=== PATIENT | female | born 1980 | race Caucasian/White ===

== ENCOUNTER 2017-03-23 19:52 | Emergency (ER) | payer OTHER ==
[~2017-03-23] VITALS: Ht 165.1 cm; Wt 58.0 kg
--- NOTE | ~2017-03-23 | CR213 ---
[facility]. [facility] A Service of [facility] & [facility] / [facility] RADIOLOGY TEXT RESULTS PATIENT: BOBBI LOCATION: SED : 76 UNIT #: [id number] AGE: [address]: Jamaal Monique MD SEX: F ORDER DR: [id number] [place] [id number] MR#: [id number] Acc #: [id number] NAME: BOBBIOctober : 1980 SEX: F STUDY DATE/TIME: 03/23/2017 22:01 UNIT: SED ROOM: STUDY DESCRIPTION: CR Ribs Unilateral 2 View Rt Attending Physician: Jamaal Monique M.D. Ordering Physician: Jamaal Monique M.D. Primary Care Physician: No Primary Care Physician MEDICAL IMAGING REPORT This report is preliminary unless electronic signature is present. EXAM Right ribs, 3 views. HISTORY Right rib pain for 4 days. No injury. FINDINGS Three views of the right ribs are negative. No pneumothorax or pleural effusion. No focal infiltrates. IMPRESSION Negative right ribs. Dictated by... Castillo Lopez M.D. THIS IS AN ELECTRONICALLY VERIFIED REPORT Castillo Lopez M.D. at 03/24/2017 4:20 AM SAMY/chadwick TD: 03/24/2017 01:16 JOB #: [id number] MEDICAL IMAGING REPORT Page 1 of 1
[~2017-03-23 19:52] MED LIST: ABILIFY; CIPRO PO; KEFLEX500 MG PO; LORTAB 5/500 TA1 TA1 PO; NO MEDICATIONS; PHENERGAN25 MG PO; ZOFRAN ODT4 MG PO
== END 2017-03-23 23:04 | disposition home or self-care (01) ==
LOC: SED 19:52
DX: S20.211A Contusion of right front wall of thorax, initial encounter (principal); F17.200 Nicotine dependence, unspecified, uncomplicated; W22.8XXA Striking against or struck by other objects, initial encounter; Y92.009 Unspecified place in unspecified non-institutional (private) residence as the place of occurrence of the external cause
CPT/HCPCS: 71100; 99284